=== PATIENT | female | born 1965 | race Caucasian/White ===

== ENCOUNTER 2024-12-17 12:18 | Day surgery (SDC) | payer OTHER ==
[2024-12-17] MEDS ORDERED: BUPIVACAINE 0.5% VIAL IJ ONE (12:19)
[2024-12-17] MEDS ORDERED: propofoL IV ONE (13:22)
[2024-12-17] MEDS ORDERED: Lactated Ringers 1,000 ML IV ONE (14:48)
--- NOTE | 2024-12-17 19:08 | XRAY ---
Indication: Bilateral L4-S1 MBB. Intraoperative fluoroscopy provided for 17 seconds. 2 digital spot image submitted for interpretation demonstrates posterior needle tips projecting over expected left and right L4-S1 nerve roots. Correlate with intraoperative findings/report.
--- NOTE | 2024-12-17 19:38 | XRAY ---
17 seconds of fluoroscopy was used in surgery for a bilateral L4-S1 MBB.
== END 2024-12-17 13:42 | disposition home or self-care (01) ==
LOC: SDC-PAIN 12:18
PROVIDERS: ATTEND Psychiatry & Neurology Pain Medicine
DX: M47.817 Spondylosis without myelopathy or radiculopathy, lumbosacral region (principal)